=== PATIENT | female | born 2005 | race Two or more races ===

== ENCOUNTER 2024-02-26 05:47 | Inpatient (IN) | payer MEDICAID, OTHER ==
[~2024-02-26] VITALS: Ht 160 cm; Wt 63.5 kg
[2024-02-26] MEDS ORDERED: LORazepam 2MG/ML-1ML VIAL IV ONE (06:30)
[2024-02-26] MEDS: MAGNESIUM SULFATE 100 ML IV ONE (06:45)
[2024-02-26] MEDS: BETAMETHASONE ACET (30mg/5ml) 5ml Vial 6mg/ml IM ONE (06:46)
[2024-02-26 06:47] LABS: Basophils # (auto) 0 10 ^3/uL (0-0.2); Basophils % (auto) 0.4 % (0.0-2.0); Eosinophils # (auto) 0.1 10 ^3/uL (0-0.8); Eosinophils % (auto) 1.2 % (0.0-7.0); Hematocrit 34.6 % (36.0-46.0); Hemoglobin 11.8 g/dL (12.2-16.2); Lymphocytes % (auto) 24.7 % (10.0-50.0); Mean Corpuscular Hemoglobin 30.7 pg (28.0-32.0); Mean Corpuscular Volume 90.2 fL (80.0-100.0); Monocytes # (auto) 0.8 10 ^3/uL (0-1.3); Monocytes % (auto) 9.9 % (0.0-12.0); Neutrophils # (auto) 5.1 10 ^3/uL (1.6-8.6); Neutrophils % (auto) 63.8 % (37.0-80.0); Nucleated Red Blood Cells % 0.1 %; Red Blood Cells 3.84 10^6/uL (4.0-5.20); Red Cell Distribution Width 13.1 % (11.8-14.3)
[2024-02-26] MEDS: PENICILLIN G POT 5MIL/D5 50ML 50 ML IV ONE (06:47)
[2024-02-26] MEDS: LACTATED RINGER'S 1,000 ML IV SCH (06:49)
[2024-02-26] MEDS: BETAMETHASONE ACET (30mg/5ml) 5ml Vial 6mg/ml ONE (06:49)
[2024-02-26 06:59] LABS: INR 0.92 (0.9-1.15); Partial Thromboplastin Time 25.6 SEC (24.5-34.5); Prothrombin Time 9.8 sec (9.3-11.8)
[2024-02-26] MEDS: MAGNESIUM SULFATE 40MG/ML 1,000 ML IV ONE (07:01)
[2024-02-26 07:07] LABS: Alanine Aminotransferase 31 U/L (7-40); Albumin 3.4 g/dL (3.2-4.8); Alkaline Phosphatase 135 U/L (46-116); Anion Gap 7 (5-15); Aspartate Aminotransferase 21 U/L (13-40); BUN/Creatinine Ratio 16.7 (10.0-20.0); Blood Urea Nitrogen 8 mg/dL (9-23); Calcium 8.8 mg/dL (8.7-10.4); Carbon Dioxide 25 mmol/L (20-30); Chloride 109 mmol/L (98-107); Glucose 92 mg/dL (74-106); Potassium 3.2 mmol/L (3.5-5.1); Sodium 141 mmol/L (136-145); Total Protein 5.8 g/dL (5.7-8.2)
[2024-02-26 07:12] LABS: Urine Bacteria FEW /hpf (None Seen); Urine Blood Negative /uL (Negative); Urine Clarity Clear (Clear); Urine Color Light-Yellow (Yellow); Urine Protein, UAD Negative (Negative); Urine Urobilinogen Normal (Negative); Urine WBC 1 /hpf (0 - 5); Urine pH 6.5 (5.0-9.0)
[2024-02-26 07:20] LABS: Amphetamine Screen, Urine Neg (NEGATIVE); Barbiturate Scree,Urine Neg (NEGATIVE); Benzodiazephine Screen, Urine Neg (NEGATIVE); Cannabinoid Screen, Urine Neg (NEGATIVE); Cocaine Screen, Urine Neg (NEGATIVE); Opiate Scree,Urine Neg (NEGATIVE); Phencyclidine Screen, Urine Neg (NEGATIVE)
[2024-02-26 07:26] LABS: Bilirubin, Total 0.4 mg/dL (0.2-1.0)
[2024-02-26] MEDS ORDERED: MAGNESIUM SULFATE 100 ML IV ONE (08:45)
[2024-02-26] MEDS ORDERED: MAGNESIUM SULFATE 40MG/ML 1,000 ML IV SCH (08:45)
== END 2024-02-26 08:09 | disposition short-term general hospital (02) | DRG 566 ==
LOC: LDRP 05:47 → OBSVTOIN 06:26
PROVIDERS: ADMIT Obstetrics & Gynecology; ATTEND Obstetrics & Gynecology
DX: O60.03 Preterm labor without delivery, third trimester (principal); Z3A.33 33 weeks gestation of pregnancy
CPT/HCPCS: 36415; 59025; 76805; 76818; 80053; 80307; 81001; 81002; 83735; 85025; 85610; 85730; 86592; 86850; 86900; 86901; 94760; 96360; 96361; 96365; 96366; 96372; G0378; J2540